=== PATIENT | female | born 1950 | race Caucasian/White ===

== ENCOUNTER 2018-10-21 09:56 | Outpatient (REF) | payer MEDICARE, BC, SELFPAY ==
[2018-10-21 22:20] LABS: Hemoglobin A1C 6.3 % (4.5-6.2)
[2018-10-21 22:53] LABS: ALT 25 U/L (12-78); AST 17 U/L (15-37); Albumin 3.7 g/dL (3.4-5.0); Alkaline Phosphatase 76 U/L (46-116); Anion Gap 8.1 mmol/L (3-11); BUN 13 mg/dL (7-18); Bilirubin, Total 0.9 mg/dL (0.2-1.0); CO2 29.9 mmol/L (21.0-32.0); CREATININE 1.05 mg/dL (0.55-1.02); Calcium 9.4 mg/dL (8.5-10.1); Chloride 101 mmol/L (98-107); Cholesterol 169 mg/dL (50-200); Estimated GFR 51.81 (mL/min/1.73m2); Glucose 110 mg/dL (70-100); HDL Cholesterol 72 mg/dL (40-60); LDL CHOLESTEROL 72 mg/dL (<100); Magnesium 1.7 mg/dL (1.8-2.4); Potassium 3.6 mmol/L (3.5-5.1); Sodium 139 mmol/L (136-145); Total Protein 6.6 g/dL (6.4-8.2); Triglyceride 149 mg/dL (30-150); Vitamin B12 402 pg/mL (193-986)
== END 2018-10-21 10:16 ==
LOC: NCHCN 09:56
PROVIDERS: PCP Nurse Practitioner Family; Visit Provider Nurse Practitioner Family
DX: I10 Essential (primary) hypertension (principal); E66.9 Obesity, unspecified; R73.09 Other abnormal glucose; Z51.81 Encounter for therapeutic drug level monitoring
CPT/HCPCS: 80053; 80061; 83721; 82607; 83036; 83735

== ENCOUNTER 2019-11-17 10:50 | Outpatient (REF) | payer MEDICARE, BC, SELFPAY ==
[2019-11-17 21:49] LABS: Anion Gap 4.6 mmol/L (3-11); BUN 19 mg/dL (7-18); CO2 32.4 mmol/L (21.0-32.0); CREATININE 1.15 mg/dL (0.55-1.02); Calcium 9.5 mg/dL (8.5-10.1); Chloride 99 mmol/L (98-107); Estimated GFR 46.52 (mL/min/1.73m2); Glucose 123 mg/dL (74-106); Magnesium 1.7 mg/dL (1.8-2.4); Potassium 3.6 mmol/L (3.5-5.1); Sodium 136 mmol/L (136-145); Vitamin B12 361 pg/mL (193-986)
== END 2019-11-17 11:10 ==
LOC: NCHCN 10:50
PROVIDERS: PCP Nurse Practitioner Family; Visit Provider Nurse Practitioner Family
DX: R73.03 Prediabetes (principal); I10 Essential (primary) hypertension; E83.42 Hypomagnesemia; K21.9 Gastro-esophageal reflux disease without esophagitis; Z79.899 Other long term (current) drug therapy
CPT/HCPCS: 80048; 82607; 83036; 83735

== ENCOUNTER 2020-11-03 21:29 | Outpatient (REF) | payer MEDICARE, BC, SELFPAY ==
[2020-11-03 22:03] LABS: Anion Gap 7.9 mmol/L (3-11); BUN 10 mg/dL (7-18); CO2 30.1 mmol/L (21.0-32.0); CREATININE 0.9 mg/dL (0.55-1.02); Calcium 8.9 mg/dL (8.5-10.1); Chloride 101 mmol/L (98-107); Glucose 102 mg/dL (74-106); Magnesium 1.8 mg/dL (1.8-2.4); Potassium 3.4 mmol/L (3.5-5.1); Sodium 139 mmol/L (136-145)
[2020-11-03 22:39] LABS: Vitamin B12 345 pg/mL (193-986)
== END 2020-11-03 21:30 | disposition home or self-care (01) ==
LOC: NCHCN 21:29
PROVIDERS: PCP Nurse Practitioner Family; Visit Provider Nurse Practitioner Family
DX: I10 Essential (primary) hypertension (principal); R73.03 Prediabetes; E83.42 Hypomagnesemia; K21.9 Gastro-esophageal reflux disease without esophagitis; Z79.899 Other long term (current) drug therapy
CPT/HCPCS: 80048; 82607; 83735

== ENCOUNTER 2021-05-01 12:38 | Outpatient (REF) | payer MEDICARE, BC, SELFPAY ==
[2021-05-01 22:08] LABS: Abs Immature Grans 0.01 10^3/uL (0.0-0.06); Absolute Basophil Count 0.04 10^3/uL (0.0-0.2); Absolute Lymphocyte Count 1.58 10^3/uL (1.2-3.4); Absolute Monocyte Count 0.57 10^3/uL (0.1-0.8); Absolute Neutrophil Count 4.52 10^3/uL (1.2-6.7); Basophils % 0.6; Eosinophils % 1.5; HGB 13.1 g/dL (11.2-15.7); Immature Grans % 0.1; Lymphocytes % 23.2; MCH 30.1 pg (27.0-33.0); MCHC 32.8 % (32.0-36.0); MPV 11.1 fL (8.0-11.0); Monocytes % 8.4; Neutrophils % 66.2; Nucleated RBC 0 %; Platelet Count 280 10^3/uL (130-400); RBC 4.35 10^6/uL (3.93-5.22); RDW 12.3 % (11.7-14.6); RDW-SD 41.9 fL; WBC 6.82 10^3/uL (4.4-10.8)
[2021-05-01 22:34] LABS: ALT 25 U/L (14-59); AST 15 U/L (15-37); Albumin 3.7 g/dL (3.4-5.0); Alkaline Phosphatase 85 U/L (46-116); Anion Gap 9.2 mmol/L (3-11); BUN 11 mg/dL (7-18); CO2 29.8 mmol/L (21.0-32.0); Chloride 100 mmol/L (98-107); Glucose 135 mg/dL (74-106); Magnesium 1.5 mg/dL (1.8-2.4); Potassium 3.4 mmol/L (3.5-5.1); Sodium 139 mmol/L (136-145); TSH 1.66 uIU/mL (0.36-3.74); Total Protein 6.6 g/dL (6.4-8.2)
[2021-05-01 23:26] LABS: Vitamin B12 316 pg/mL (193-986)
== END 2021-05-01 12:39 | disposition home or self-care (01) ==
LOC: NCHCN 12:38
PROVIDERS: PCP Nurse Practitioner Family; Visit Provider Nurse Practitioner Family
DX: R53.83 Other fatigue (principal); I10 Essential (primary) hypertension; R73.03 Prediabetes; N28.9 Disorder of kidney and ureter, unspecified; K21.9 Gastro-esophageal reflux disease without esophagitis
CPT/HCPCS: 80053; 82607; 83735; 84443; 85025

== ENCOUNTER 2022-04-16 15:43 | Outpatient (REF) | payer MEDICARE, BC, SELFPAY ==
[2022-04-16 15:44] LABS: Hemoglobin A1C 5.9 % (<5.7)
[2022-04-16 16:46] LABS: ALT 22 U/L (14-59); AST 21 U/L (15-37); Albumin 3.7 g/dL (3.4-5.0); Alkaline Phosphatase 89 U/L (46-116); Anion Gap 9.5 mmol/L (3-11); BUN 8 mg/dL (7-18); Bilirubin, Total 1.1 mg/dL (0.2-1.0); CO2 28.5 mmol/L (21.0-32.0); Calcium 9.2 mg/dL (8.5-10.1); Chloride 96 mmol/L (98-107); Estimated GFR 59.49 (mL/min/1.73m2); Glucose 116 mg/dL (74-106); Magnesium 1.6 mg/dL (1.8-2.4); Potassium 3.1 mmol/L (3.5-5.1); Sodium 134 mmol/L (136-145); Vitamin B12 652 pg/mL (193-986)
== END 2022-04-16 15:44 | disposition home or self-care (01) ==
LOC: NCHCN 15:43
PROVIDERS: PCP Nurse Practitioner Family; Visit Provider Nurse Practitioner Family
DX: R73.03 Prediabetes (principal); I10 Essential (primary) hypertension; K21.9 Gastro-esophageal reflux disease without esophagitis; N28.9 Disorder of kidney and ureter, unspecified; E53.8 Deficiency of other specified B group vitamins
CPT/HCPCS: 80053; 82607; 83036; 83735

== ENCOUNTER 2022-10-29 18:23 | Outpatient (REF) | payer MEDICARE, BC, SELFPAY ==
[2022-10-29 15:04] LABS: HGB 13.4 g/dL (11.2-15.7); MCH 30.1 pg (27.0-33.0); MCHC 33.5 % (32.0-36.0); MCV 90 fL (80-95); MPV 10.5 fL (8.0-11.0); Platelet Count 294 10^3/uL (130-400); RBC 4.45 10^6/uL (3.93-5.22); RDW 12.4 % (11.7-14.6); RDW-SD 40.7 fL; WBC 6.62 10^3/uL (4.4-10.8)
[2022-10-29 15:26] LABS: Hemoglobin A1C 5.7 % (<5.7)
[2022-10-29 15:45] LABS: ALT 25 U/L (14-59); AST 18 U/L (15-37); Albumin 3.7 g/dL (3.4-5.0); Alkaline Phosphatase 81 U/L (46-116); Anion Gap 6.2 mmol/L (3-11); BUN 9 mg/dL (7-18); Bilirubin, Total 0.8 mg/dL (0.2-1.0); CO2 31.8 mmol/L (21.0-32.0); Calcium 9.1 mg/dL (8.5-10.1); Chloride 97 mmol/L (98-107); Estimated GFR 59.12 (mL/min/1.73m2); Glucose 108 mg/dL (74-106); Magnesium 1.7 mg/dL (1.8-2.4); Potassium 3.6 mmol/L (3.5-5.1); Sodium 135 mmol/L (136-145); TSH 2.16 uIU/mL (0.36-3.74); Vitamin B12 1188 pg/mL (193-986)
== END 2022-10-29 18:24 | disposition home or self-care (01) ==
LOC: NCHCN 18:23
PROVIDERS: PCP Nurse Practitioner Family; Visit Provider Nurse Practitioner Family
DX: I10 Essential (primary) hypertension (principal); R73.03 Prediabetes; E83.42 Hypomagnesemia; E53.8 Deficiency of other specified B group vitamins; N28.9 Disorder of kidney and ureter, unspecified
CPT/HCPCS: 80053; 85027; 82607; 83036; 83735; 84443

== ENCOUNTER 2023-10-28 14:46 | Outpatient (REF) | payer MEDICARE, BC, SELFPAY ==
[2023-10-28 21:40] LABS: Hemoglobin A1C 5.9 % (<5.7)
[2023-10-28 22:47] LABS: BUN 15 mg/dL (7-18); Calcium 9.7 mg/dL (8.5-10.1); Chloride 100 mmol/L (98-107); Estimated GFR 58.75 (mL/min/1.73m2); Folate 12.4 ng/mL (8.6-20.0); Glucose 101 mg/dL (74-106); Magnesium 1.7 mg/dL (1.8-2.4); Potassium 3.3 mmol/L (3.5-5.1); Sodium 140 mmol/L (136-145); Vitamin B12 535 pg/mL (193-986)
== END 2023-10-28 14:47 | disposition home or self-care (01) ==
LOC: NCHCN 14:46
PROVIDERS: PCP Nurse Practitioner Family; Visit Provider Nurse Practitioner Family
DX: N18.9 Chronic kidney disease, unspecified (principal); E53.8 Deficiency of other specified B group vitamins; R73.03 Prediabetes; E83.42 Hypomagnesemia
CPT/HCPCS: 80048; 82607; 82746; 83036; 83735

== ENCOUNTER 2024-10-29 16:24 | Outpatient (REF) | payer MEDICARE, BC, SELFPAY ==
[2024-10-29 21:12] LABS: HCT 37.3 % (36.0-46.0); MCH 31.2 pg (27.0-33.0); MCHC 34.9 % (32.0-36.0); MCV 89 fL (80-95); MPV 10.4 fL (8.0-11.0); Platelet Count 320 10^3/uL (130-400); RBC 4.17 10^6/uL (3.93-5.22); RDW 12.5 % (11.7-14.6); RDW-SD 40.9 fL; WBC 8.41 10^3/uL (4.4-10.8)
[2024-10-29 21:31] LABS: BUN 12 mg/dL (7-18); CREATININE 0.9 mg/dL (0.55-1.02); Calcium 9.2 mg/dL (8.5-10.1); Calculated LDL 49 mg/dL (<100); Chloride 96 mmol/L (98-107); Cholesterol 152 mg/dL (<200); Estimated GFR 66.26 (mL/min/1.73m2); Glucose 147 mg/dL (74-106); HDL Cholesterol 86 mg/dL (>or=50); Hemoglobin A1C 5.7 % (<5.7); Magnesium 1.7 mg/dL (1.8-2.4); Potassium 3.2 mmol/L (3.5-5.1); Sodium 133 mmol/L (136-145); Triglyceride 86 mg/dL (<150)
== END 2024-10-29 16:25 | disposition home or self-care (01) ==
LOC: NCHCN 16:24
PROVIDERS: PCP Nurse Practitioner Family; Visit Provider Nurse Practitioner Family
DX: I10 Essential (primary) hypertension (principal); R73.03 Prediabetes; Z13.0 Encounter for screening for diseases of the blood and blood-forming organs and certain disorders involving the immune mechanism; E83.42 Hypomagnesemia
CPT/HCPCS: 80048; 80061; 85027; 83036; 83735

== ENCOUNTER 2025-03-29 15:16 | Outpatient (REF) | payer MEDICARE, BC, SELFPAY ==
[2025-03-29 21:38] LABS: HCT 39.1 % (36.0-46.0); HGB 13.3 g/dL (11.2-15.7); MCH 30.7 pg (27.0-33.0); MCHC 34.0 % (32.0-36.0); MCV 90 fL (80-95); MPV 10.5 fL (8.0-11.0); Platelet Count 296 10^3/uL (130-400); RBC 4.33 10^6/uL (3.93-5.22); RDW 12.3 % (11.7-14.6); RDW-SD 40.8 fL; WBC 6.50 10^3/uL (4.4-10.8)
[2025-03-29 22:02] LABS: Anion Gap 9.6 mmol/L (3-11); BUN 9 mg/dL (7-18); CO2 30.4 mmol/L (21.0-32.0); Calcium 9.1 mg/dL (8.5-10.1); Chloride 93 mmol/L (98-107); Estimated GFR 58.39 (mL/min/1.73m2); Glucose 141 mg/dL (74-106); Magnesium 2.1 mg/dL (1.8-2.4); Potassium 3.3 mmol/L (3.5-5.1); Sodium 133 mmol/L (136-145); TSH 1.65 uIU/mL (0.36-3.74)
[2025-03-29 22:10] LABS: Hemoglobin A1C 6.0 % (<5.7)
[2025-03-30 20:37] LABS: Hepatitis C Ab w Rflx HCV PCR Negative (Negative)
== END 2025-03-29 15:17 | disposition home or self-care (01) ==
LOC: NCHCN 15:16
PROVIDERS: PCP Nurse Practitioner Family; Visit Provider Nurse Practitioner Family
DX: R73.03 Prediabetes (principal); N18.9 Chronic kidney disease, unspecified
CPT/HCPCS: 80048; 85027; 86803; 83036; 83735; 84443

== ENCOUNTER 2025-03-30 19:24 | Outpatient (REF) | payer MEDICARE, BC, SELFPAY ==
[2025-03-30 21:32] LABS: COMMENT (LAB VIEW ONLY) 77.56 mg/dL; Microalb ug/mg Crea 9.8 ug/mg Cr
== END 2025-03-30 19:25 | disposition home or self-care (01) ==
LOC: NCHCN 19:24
PROVIDERS: PCP Nurse Practitioner Family; Visit Provider Nurse Practitioner Family
DX: I10 Essential (primary) hypertension (principal)
CPT/HCPCS: 82043; 82570